=== PATIENT | male | born 1980 | race Caucasian/White ===

== ENCOUNTER 2025-06-04 17:23 | Emergency (ER) | payer OTHER, SELFPAY ==
[2025-06-04] VITALS (7 sets, daily range): BP systolic 132–150; BP diastolic 94–99; PULSE 101–128; RESP 13–18; TEMP 36.1–36.7; O2SAT 92–99; BMI 33.1
--- NOTE | 2025-06-04 17:27 | EKG12_ITS ---
Test Reason : allergi reaction Blood Pressure : */* mmHG Vent. Rate : 128 BPM Atrial Rate : 128 BPM P-R Int : 164 ms QRS Dur : 92 ms QT Int : 298 ms P-R-T Axes : 27 65 55 degrees QTcB Int : 435 ms Sinus tachycardia Otherwise normal ECG Confirmed by ANTHONY MCGRATH, MIQUEL ([id number]), deputy editor in chief RUSLAN BROWN ([id number]) on 06/05/2025 8:49:49 AM Referred By: Confirmed By: MIQUEL CRUZ MD
[2025-06-04] MEDS: Epi Pen (EQUIV) 0.3 MG Syringe IM (17:34)
[2025-06-04] MEDS: DiphenhydrAMINE 50 MG/ML Syringe IV (17:35)
[2025-06-04] MEDS: 0.9% Normal Saline (1000mL) 1,000 ML 150 ML IV (17:36)
[2025-06-04] MEDS: Albuterol 2.5 MG/3 ML VIAL.NEB. INHALATION (17:36)
[2025-06-04] MEDS: Famotidine 200 MG/20 ML MDV 20 MG in 0.9% Normal Saline (Pres. free 8 ML 300 MG IV (17:38)
[2025-06-04 17:54] LABS: Hematocrit 49.8 % (40-54); Hemoglobin 16.6 g/dL (13.0-16.5); Immature Granulocytes Count 0.100 X10^3/uL (0.0-0.0); Mean Corp Hgb Conc 33.3 g/dL (32-36); Mean Corpuscular Volume 84.6 fL (80-94); Mean Platelet Vol. 9.8 fl (6.2-12.0); NRBC Flagged by Analyzer 0 % (0-5); Platelet Count 303 K/mm3 (150-450); RBC Distribution Width CV 12.8 % (11.6-14.6); RBC Distribution Width SD 39.8 fl (35.1-43.9); Red Blood Count 5.89 M/mm3 (4.6-6.2); White Blood Count 12.9 K/mm3 (4.4-11.0)
--- NOTE | 2025-06-04 17:56 | EX.ED.DYSGE1 ---
HPI History of Present Illness Chief Complaint: Allergic Reaction Detail of Chief Complaint: Angioedema on lisinopril Informant: patient and spouse/S.O. Onset/Context/Timing Onset: Today (Last known well 3 PM) Context: Sudden Onset Timing: Continuous Quality: Swelling of his tongue, difficulty swallowing and change in voice Location: Initially presumed to be angioedema due to lisinopril Current Severity: Severe Maximum Severity: Severe Worsened by: Presumed lisinopril Relieved by: Nothing Associated Symptoms Associated Symptoms: Once patient was brought back to a room and undressed he is noted to have h Narrative Narrative: Patient is a 45-year-old male. He has a history of hypertension on lisinopril. He took a nap at 3 PM. He woke up 4. He is having trouble with swallowing change in voice and there was a rash. He did not have any berries, nuts or shellfish for lunch. He had bread with honey. There is no history of allergic reaction to bees. Patient denies rhinorrhea, congestion. Does complain of mild sore throat discomfort. He does endorse trouble breathing. He denies chest discomfort. He denies nausea, vomiting or diarrhea. He denies orthostatic symptoms. Prior similar symptoms: No Recent Illness/Hospitalization: No [facility] Medical History (Updated 06/04/25 @ 21:[address] Edil Martinez MD) Elevated blood pressure reading with diagnosis of hypertension Home Medications ?Medication ?Instructions ?Recorded ?Last Taken ?Type diphenhydramine HCl 25 mg capsule 25 mg PO TID #10 caps 06/04/25 Unknown Rx (Benadryl) epinephrine 0.3 mg/0.3 mL 0.3 mg (0.3 mL) IM Q10M PRN 06/04/25 Unknown Rx injection, auto-injector (EpiPen) anaphylaxis #1 ea famotidine 20 mg tablet (Pepcid) 20 mg PO BID #7 tabs 06/04/25 Unknown Rx prednisone 20 mg tablet 40 mg (2 x 20 mg) PO DAILY #8 tabs 06/04/25 Unknown Rx Social History Smoking Status: Never smoker ROS ROS ED Constitutional Constitutional ED: Denies chills or fever(s) Eyes Eyes: Denies blurry vision or change in vision ENT ENT ED: Reports sore throat; Denies ear pain or rhinorrhea Cardiovascular Cardiovascular: Denies chest pain, palpitations or racing heartbeat Respiratory/Chest Respiratory/Chest: Reports dyspnea; Denies cough or sputum Gastrointestinal Gastrointestinal: Denies abdominal pain, diarrhea, nausea or vomiting Musculoskeletal Musculoskeletal: Denies arthralgias or myalgias Integumentary Reports rash Neurologic Neurologic: Denies headache(s) or paresthesias Psychiatric Psychiatric: Reports anxiety Hematologic/Lymphatic Hematologic/Lymphatic: Reports systems reviewed and no addt'l complaints, except as documented EXAM Physical Exam Const Vital Signs: 06/04/25 17:23 06/04/25 17:36 06/04/25 18:23 Temperature 97.0 F L Temperature Source Oral Pulse Rate 127 H 128 H 105 H Respiratory Rate 18 13 16 Respiratory Pattern Normal Blood Pressure 132/96 H Blood Pressure Mean 108 Pulse Ox 92 94 Oxygen Delivery Method Room Air Room Air 06/04/25 19:00 06/04/25 20:00 06/04/25 21:00 Temperature Temperature Source Pulse Rate 105 H 101 H 108 H Respiratory Rate 16 18 18 Respiratory Pattern Blood Pressure 150/94 H 142/99 H 146/94 H Blood Pressure Mean 112 113 111 Pulse Ox 96 94 95 Oxygen Delivery Method Room Air Room Air Room Air Positive well nourished and well developed General Appearance ED: well developed HEENT Reports dry mucous membranes HEENT Narrative: Patient has angioedema involving the uvula tongue and anterior neck Mouth ED: Yes dry mucous membranes Mouth: dry mucous membranes Eyes PERRL and EOMs intact bilaterally General Eye ED: Negative for pale conjunctiva or scleral icterus Neck no lymphadenopathy, supple and no JVD Neck Narrative: Trachea is midline. There is abnormal sounds noted with inspiration expiration. They are not high-pitched like stridor. Chest Wall inspection of chest normal and palpation of chest normal Chest Narrative: Crackles noted at the base. Question of slight expiratory wheeze. Resp normal respiratory effort Cardio regular rhythm, S1 normal heart sound, S2 normal heart sound and no murmurs Rate: tachycardic GI normal to inspection, nondistended, normoactive bowel sounds, non-tender, non-distended and no masses; Negative for hepatosplenomegaly Back/Spine no CVA tenderness Extremity Negative for normal to inspection General Extremety ED: Negative for edema or tenderness General Extremity: Negative for edema Neuro oriented x3 and CN's II-XII intact bilaterally Sensorium / Orientation: alert Psych mental status grossly normal Skin Skin Narrative: Patient has hives. MDM MDM MDM Narrative Medical decision making narrative: Patient has allergic angioedema due to unknown [place]. Doubt this to be due to his lisinopril. Once he was brought back to the room and noted to have hives he was treated with epinephrine. The epinephrine was administered anterior left thigh by me. He also received H1 and H2 dang and Solu-Medrol. He was reassessed 6 minutes after the epinephrine. He was start to have improvement. He was then reassessed 15 minutes after the epinephrine which would have been 1550. His rash improved by 50%. His voice still slightly hoarse. He states he is able to swallow more easily. Patient with anaphylactic reaction with allergic angioedema. CBC was obtained to assess for eosinophilia. Patient was reassessed at 1806. His rash had improved by 7580%. He states his neck is not as swollen. Patient was reassessed at 1827. He has slight erythema to the anterior right and left chest. His voice is back to normal. There is no evidence of angioedema. There is no wheezing noted on auscultation. Patient reports that he feels tired other than that he has no symptoms. He looks well at this point. Will reassess in 1 hour. ([id number]) Patient was reassessed at 2109. He has no dysphonia, no stridor, no hives, no respiratory distress. He feels his throat is back to normal. Plan is to discharge to home with prescription for H1 H2 dang and EpiPen Lab Data Attestation: I reviewed the patient's lab results. Lab results narrative: White count slightly elevated 12.9. Differential is normal. H&H is normal. Labs: Laboratory Results - last 24 hr 06/04/25 17:45 WBC 12.9 H RBC 5.89 Hgb 16.6 H Hct 49.8 MCV 84.6 MCH 28.2 MCHC 33.3 RDW Std Deviation 39.8 RDW Coeff of [place] 12.8 Plt Count 303 MPV 9.8 Immature Gran % (Auto) 0.800 Neut % (Auto) 53.9 Lymph % (Auto) 33.9 [place] % (Auto) 7.0 Eos % (Auto) 3.8 Baso % (Auto) 0.6 Absolute Neuts (auto) 7.0 Absolute Lymphs (auto) 4.37 Nucleated RBC % 0 Sodium 138 Potassium 3.9 Chloride 101 Carbon Dioxide 21.8 Anion Gap 15 BUN 16 Creatinine 0.87 Estim Creat Clear Calc 139.34 Est GFR (MDRD) Non-Af 109 BUN/Creatinine Ratio 18.2 Glucose 157 H Calcium 9.3 Critical Care Time Critical Care Time: Yes Critical care time (excluding procedures): 30-74 minutes (31), Including time spent: (History, physical, documentation, repeated numerous exams), Discussing w/Patient &/or Family/Ortho/Prosthetic Aide and Discussing w/Consultants Discharge Plan Triage Chief Complaint: Allergic Reaction ED Provider: Edil Martinez Dx/Rx/DC Orders Clinical Impression: Anaphylactic reaction, Elevated blood pressure reading with diagnosis of hypertension, Allergic angioedema, Sinus tachycardia Instructions: ED Anaphylaxis, ED Angioedema Prescriptions: New epinephrine [EpiPen] 0.3 mg/0.3 mL auto-injector 0.3 mg IM Q10M PRN Qty: 1 0RF Rx Instructions: Administer if you have an allergic reaction famotidine [Pepcid] 20 mg tablet 20 mg PO BID Qty: 7 0RF diphenhydramine HCl [Benadryl] 25 mg capsule 25 mg PO TID Qty: 10 0RF prednisone 20 mg tablet 40 mg PO DAILY Qty: 8 0RF Primary Care Provider: Aly Slater Referrals: Aly Slater, [Primary Care Provider] - As soon as possible Activity Restrictions/Additional Instructions: 1. Call Dr. Slater's office to be allergy tested as soon as possible. 2. You must carry the EpiPen with you at all times. 3. If you develop hives swelling use the EpiPen as instructed. 4. Take medications as prescribed until gone. Print Language: Lithuanian Disposition Disposition: Home, Self Care
[2025-06-04 18:24] LABS: Anion Gap 15 (5-15); BUN 16 mg/dL (4-19); BUN/Creat Ratio 18.2 RATIO (10-20); Calcium,Total 9.3 mg/dL (7.6-11.0); Carbon Dioxide 21.8 mmol/L (21.0-32.0); Chloride 101 mmol/L (98-108); Estimated Creatinine Clearance 139.34 ml/min (50-250); Glucose 157 mg/dL (70-99); Potassium 3.9 mmol/L (3.3-5.1)
== END 2025-06-04 21:37 | disposition home or self-care (01) ==
PROVIDERS: Emergency Provider Emergency Medicine; PCP Family Medicine; Visit Provider Emergency Medicine
DX: T78.2XXA Anaphylactic shock, unspecified, initial encounter (principal); I10 Essential (primary) hypertension; R00.0 Tachycardia, unspecified; Z79.899 Other long term (current) drug therapy; T78.3XXA Angioneurotic edema, initial encounter
CPT/HCPCS: 80048; 85025; 93005; 94640; 96365; 96366; 96372; 96375; 99285; A4216